=== PATIENT | female | born 1990 | race Caucasian/White ===

== ENCOUNTER 2018-01-29 17:45 | Observation (INO) | payer OTHER, BC, MEDICAID ==
[~2018-01-29] VITALS: Ht 172.7 cm; Wt 100.0 kg
--- NOTE | ~2018-01-29 | OP ---
PATIENT NAME: ROSANNA SHAH MEDICAL RECORD: [id number] :92 LOCATION:[facility] ADMISSION DATE:01/29/18 SURGEON: STEVEN ELKINS MD DATE OF OPERATION: 01/29/2018 PREOPERATIVE DIAGNOSIS: Inevitable . POSTOPERATIVE DIAGNOSIS: Inevitable . PROCEDURE: Suction D&E with curettage. SURGEON: Steven Elkins MD PROJECT SCIENTIST: Maurilio Mosquera. ANESTHESIA: General anesthetic with endotracheal intubation. FINDINGS: Uterus is enlarged to approximately 10-11 week size. Cervical os is open with blood at the os. Copious amounts of products of conception returned. SPECIMEN REMOVED: Products of conception. SPECIMEN DISPOSITION: Pathology. ESTIMATED BLOOD LOSS: Approximately 75 cc. FLUIDS: 1 liter lactated Ringer's. URINE OUTPUT: Quantity sufficient void prior to this procedure. COMPLICATIONS: None. DRAINS: None. INDICATIONS: The patient is a 27-year-old G1, para 0 at approximately 12 weeks' gestation. The patient had an ultrasound earlier today with no cardiac activity and a pole less than that of a stated gestational age. The patient has been having some cramping and bleeding throughout the day. The patient was consented for suction curettage and any indicated procedure. DESCRIPTION OF PROCEDURE: After informed consent was assured, the patient was taken to the operating room where anesthetic was obtained. The patient is now prepped and draped in the usual sterile fashion. A speculum was introduced into the vaginal vault and the cervix is grasped with a single tooth tenaculum. The os is dilated and easily accommodates an 8 curved suction curette. This is passed to the fundus and products of conception removed on several passes. Sharp curettage was performed with good cry throughout. DESCRIPTION OF PROCEDURE: After this had been performed, a single pass with the suction device removed all remaining clot and debris. A 0.2 mg of Methergine will be given in the PACU. Single tooth tenaculum was removed and a ring forceps placed over the puncture sites to be left until the patient was awakened and on the gurney. Speculum was removed and the patient was awakened and went to the recovery area in stable condition. OPERATIVE REPORT [id number] ROSANNA SHAH TRANSINT:[id number] Voice Confirmation ID: [id number] DOCUMENT ID: [id number] STEVEN ELKINS MD at 1349 CC: [id number] DICTATION DATE: 01/29/182226 MARKING MACHINE OPERATOR: 01/30/18 0118 DIS IN 01/30/18 [place] [id number] [place] [address]
[2018-01-29 18:31] LABS: BASOPHILS 0.3 % (0-2); EOSINOPHILS 1.7 % (0-7); HEMATOCRIT 38.8 % (36.0-48.0); HEMOGLOBIN 13.1 g/dL (12-16); IMMATURE GRANULOCYTES 0.3 % (0-5); LYMPHOCYTES 18.3 % (15-50); MCH 29.4 pg (26.0-34.0); MCHC 33.8 g/dL (31.0-37.0); MCV 87.2 fL (80.0-100.0); MEAN PLATELET VOLUME 10.7 fL (7.4-10.4); MONOCYTES 9.8 % (2-11); NEUTROPHILS 69.6 % (40-80); PLATELET COUNT 257 10x3/uL (130-400); RBC 4.45 10x6/uL (4.00-5.40); RDW 12.6 % (11.5-14.5); WBC 14.3 10x3/uL (4.8-10.8)
[2018-01-29 18:43] VITALS: BP 104/61; Ht 172.7 cm; Wt 100.0 kg
[2018-01-29 19:19] VITALS: BP 112/60
[2018-01-29 22:54] VITALS: BP 110/62
[2018-01-29 23:22] VITALS: BP 118/70
[2018-01-29 23:42] VITALS: BP 117/60
[2018-01-29 23:58] VITALS: BP 114/58
[2018-01-30 00:12] VITALS: BP 123/61
[2018-01-30 01:48] VITALS: BP 102/57
[2018-01-30 04:28] VITALS: BP 103/51
[2018-01-30 07:39] VITALS: BP 102/57
[2018-01-30] MEDS ORDERED: TYLENOL W/CODEI1 TAB PO (09:11)
== END 2018-01-30 09:25 | disposition home or self-care (01) ==
LOC: D.LD 17:45 → OBSVTIME 17:56 → D.LD 01-30 09:25
PROVIDERS: Obstetrics & Gynecology
DX: O03.4 Incomplete spontaneous abortion without complication (principal)

== ENCOUNTER 2019-07-19 15:05 | Emergency (ER) | payer OTHER, MEDICAID ==
[~2019-07-19] VITALS: Ht 172.7 cm; Wt 102.3 kg
[~2019-07-19 15:05] MED LIST: TYLENOL W/CODEI1 TAB PO
[2019-07-19 15:09] VITALS: Ht 172.7 cm; Wt 102.3 kg
[2019-07-19] MEDS ORDERED: NAPROSYN500 MG PO (15:48)
[2019-07-19 16:00] VITALS: BP 115/68
== END 2019-07-19 16:01 | disposition home or self-care (01) ==
LOC: D.ER 15:05
DX: M25.561 Pain in right knee (principal)

== ENCOUNTER → 2019-08-01 07:55 | Outpatient (CLI) | payer BC, MEDICAID ==
[2019-07-19 15:09] VITALS: BMI 34.2
[~2019-08-01 07:55] MED LIST changes: +NAPROSYN500 MG PO
== END | disposition home or self-care (01) ==
LOC: D.MRI 07:55
PROVIDERS: ATTEND Orthopaedic Surgery
DX: S83.231A Complex tear of medial meniscus, current injury, right knee, initial encounter (principal)

== ENCOUNTER 2019-08-21 09:01 | Day surgery (SDC) | payer BC ==
[~2019-08-21] VITALS: Ht 172.7 cm; Wt 102.1 kg
--- NOTE | ~2019-08-21 | OP ---
PATIENT NAME: ROSANNA SHAH MEDICAL RECORD: [id number] :92 LOCATION:[facility]OPS ADMISSION DATE: SURGEON: MARLYN HARRIS MD DATE OF OPERATION: 08/21/2019 PREOPERATIVE DIAGNOSIS: Symptomatic medial and lateral shelf plica of the right knee. POSTOPERATIVE DIAGNOSIS: Symptomatic medial and lateral shelf plica of the right knee plus suprapopliteal phlegmon appearing tissue, and loose body. PROCEDURE: 1. Arthroscopic medial shelf plica. 2. Arthroscopic lateral shelf plica. 3. Arthroscopic loose body removal. SURGEON: Marlyn Harris MD ANESTHESIA: General. INTRAOPERATIVE COMPLICATIONS: None. SUMMARY OF PATHOLOGIC FINDINGS: Photographed intraoperatively. The patient had a very large hemosiderin laden very irritated appearing plica that extended down and across from the suprapopliteal fossa to the medial recess as well as to the lateral recess, somewhat very odd in nature. The patient was found to have a loose body. A small area on the lateral femoral condyle of a cartilaginous defect was found having already filled in with fibrocartilage nothing further needed to be done except remove the small cartilaginous piece that had been avulsed. OPERATIVE SUMMARY IN DETAIL: After obtaining the appropriate preoperative orthopedic surgery consent as well as anesthetic consultation, evaluation and clearance, the patient was brought to the operating room and placed on the operating table in supine position. After general laryngeal mask airway was administered, tourniquet was placed on proximal aspect of the right lower extremity. The right lower extremity was then prepped and draped in routine sterile fashion. The leg was elevated and exsanguinated, tourniquet inflated to 350 mmHg. Routine timeout was taken and agreed upon by all given the patient's unique identifiers. Inferolateral portal was created followed by superomedial portal and inferomedial portal. Diagnostic arthroscopy showed the patient to have findings as noted above. A full radius resector was utilized to debride both the medial shelf plica and the medial two-thirds of the suprapopliteal fibrous tissue filled portion. At this point, the loose chondral piece was noted. Please note that prior to take down of the plica full examination was done in the medial and lateral compartments were pristine except for a very small 1.5 x 1.5 mm area of chondral defect which was likely the source of the loose body. Arthroscopy was switched and then the lateral plica was taken down along with the lateral one-third of the fibrous appearing tissue in the suprapopliteal space. Having completed this, the knee was insufflated with 30 cc of 0.25% Marcaine with epinephrine and 40 mg of Depo-Medrol. Arthroscopy portals were closed in routine interrupted fashion using 4-0 Prolene. Sterile dressings were applied. Tourniquet was deflated. The patient was awakened and taken to recovery room in stable condition. All final needle and sponge counts were correct. OPERATIVE REPORT [id number] ROSANNA SHAH TRANSINT:[id number] Voice Confirmation ID: [id number] DOCUMENT ID: [id number] KIMBERLY RODRIGUEZ, MARLYN LÓPEZ CC: [id number] DICTATION DATE: 08/21/19 142 SATELLITE TV TECHNICIAN: 08/21/19 221 DEP SD 08/21/19 [facility] [address] [place] [address]
[2019-08-21 09:36] LABS: HCG SERUM NEGATIVE (NEGATIVE); HEMOGLOBIN 15.2 g/dL (12-16); MCH 29.3 pg (26.0-34.0); MCV 88.8 fL (80.0-100.0); MEAN PLATELET VOLUME 10.6 fL (7.4-10.4); RBC 5.18 10x6/uL (4.00-5.40); RDW 12.7 % (11.5-14.5); WBC 7.4 10x3/uL (4.8-10.8)
[2019-08-21 09:48] VITALS: BP 118/65; Ht 172.7 cm; Wt 102.1 kg
[2019-08-21] MEDS ORDERED: HYDROCODON-ACE1 EA10 PO (14:16)
--- NOTE | 2019-08-21 14:37 | NUR ---
PATIENT CARE ASSUMED AT THIS TIME
--- NOTE | 2019-08-21 15:11 | NUR ---
1503-REPORTS PAIN 9/10 TO SURGICAL INCISION. ADMINISTERED NORCO 10/325MG 1 BY MOUTH FOR PAIN. DRESSING CDI. VSS. ICE TO KNEE AND ELEVATED. DENIES N/V.
--- NOTE | 2019-08-21 15:51 | NUR ---
1530 IV REMOVED AND INSTRUCTIONS GIVEN
== END 2019-08-21 15:45 | disposition home or self-care (01) ==
LOC: D.OPS 09:01 → D.PAN 12:45 → D.OPS 15:45
PROVIDERS: Anesthesiology; ATTEND Orthopaedic Surgery
DX: M67.51 Plica syndrome, right knee (principal); M23.41 Loose body in knee, right knee; M25.561 Pain in right knee